=== PATIENT | female | born 1960 | race African-American/Black ===

== ENCOUNTER 2018-09-25 06:33 | Emergency (ER) | payer BC, OTHER ==
[2018-09-25 06:54] VITALS: BP 115/80; PULSE 72; TEMP 97.6; BMI 27.4
--- NOTE | 2018-09-25 07:13 | PDOC ---
History of Present Illness - General Chief Complaint: Injury Stated Complaint: FALL,RT ARM PAIN Time Seen by Provider: 09/25/18 07:13 History Source: Patient Exam Limitations: No Limitations - History of Present Illness Initial Comments: 09/25/18 07:24 57 year old female with no PMH presented to ED for right shoulder pain s/p fall. Pt stated she was shoveling snow and then tripped and fell onto her right shoulder at 1730 yesterday. She denied head injury, LOC, vomiting. She stated she started to get hives to her left hip and right hand last night as well. Pt took 2 Aleve this morning without relief of pain. Allergies: NKDA Past History - Past Medical History Allergies/Adverse Reactions: Allergies Allergy/AdvReac Type Severity Reaction Status Date / Time No Known Drug Allergies Allergy Verified 09/25/18 06:47 Home Medications: Ambulatory Orders Acyclovir [Zovirax -] PO DAILY 06/05/13 Cyanocobalamin [Vitamin B12 -] PO DAILY 06/05/13 Naproxen Sodium [Anaprox Ds] 550 mg PO BID #0 tablet 06/12/13 Anemia: No Asthma: No Cancer: No Cardiac Disorders: No CVA: No COPD: No CHF: No Dementia: No Diabetes: No GI Disorders: No Disorders: No HTN: No Hypercholesterolemia: No Liver Disease: No Seizures: No Thyroid Disease: No - Surgical History Abdominal Surgery: No Appendectomy: No Cardiac Surgery: No Cholecystectomy: No Lung Surgery: No Neurologic Surgery: No Orthopedic Surgery: No - Immunization History Immunization Up to Date: Yes - Suicide/Smoking/Psychosocial Hx Smoking History: Never smoked Have you smoked in the past 12 months: No Information on smoking cessation initiated: No Hx Alcohol Use: No Drug/Substance Use Hx: No Substance Use Type: Alcohol Hx Substance Use Treatment: No Review of Systems - Review of Systems Able to Perform ROS?: Yes Comments:: 09/25/18 07:28 General: denied fever, chills, night sweats, generalized weakness. HEENT: denied sore throat, rhinorrhea, ear pain. Heart: denied chest pain, palpitations, syncope, diaphoresis. Respiratory: denied shortness of breath, cough, sputum production, hemoptysis. Abdomen: denied abdominal pain, nausea, vomiting, diarrhea, constipation, blood in stool. : denied dysuria, increased urinary frequency, hematuria, urinary incontinence , flank pain. Back: denied back pain. Musculoskeletal: admitted to right shoulder pain. Neurological: denied headache, dizziness, numbness, tingling, weakness. Skin: admitted to hives. denied laceration, abrasion. *Physical Exam - Vital Signs Last Vital Signs Temp Pulse Resp BP Pulse Ox 97.6 F 72 18 115/80 99 09/25/18 06:47 09/25/18 06:47 09/25/18 06:47 09/25/18 06:47 09/25/18 06:47 - Physical Exam Comments: 09/25/18 07:29 Constitutional: Well-nourished, Well-developed, appearing stated age. HEENT: head is normocephalic, atraumatic. EOMI. PERRLA. Neck: supple. Full ROM. Heart: regular rhythm. no murmurs, rubs or gallops. Lungs: no stridor. clear to auscultation bilaterally. no crackles, rhonchi or wheezing. no stridor. Abdomen: soft, nontender. normal bowel sounds. no rebound, guarding, masses. Extremities: unable to abduct right shoulder passively or actively secondary to pain. full ROM right elbow and right wrist. no scaphoid tenderess to right hand. full ROM all right hand fingers. Peripheral pulses intact and equal. No lower extremity edema. Neurological: CN 2-12 grossly intact. Moves all four extremities. Psych: awake, alert, oriented x3. Follows commands. Answers questions appropriately. Skin: right hand is swollen and red, consistent with allergic reaction. Moderate Sedation - Procedure Monitoring Vital Signs: Procedure Monitoring Vital Signs Temperature 97.6 F 09/25/18 06:47 Pulse Rate 72 09/25/18 06:47 Respiratory Rate 18 09/25/18 06:47 Blood Pressure 115/80 09/25/18 06:47 O2 Sat by Pulse Oximetry (%) 99 09/25/18 06:47 Medical Decision Making - Medical Decision Making 09/25/18 07:30 57 year old female with no PMH slipped and fell shoveling snow yesterday, presented to ED today c/o right shoulder pain and hives to right hand and left hip. Initial Vital Signs Temp Pulse Resp BP Pulse Ox 97.6 F 72 18 115/80 99 09/25/18 06:47 09/25/18 06:47 09/25/18 06:47 09/25/18 06:47 09/25/18 06:47 Afebrile. No tachycardia. No tachypnea. Normal BP. No hypoxia on room air. o Labs ordered: none c Imaging ordered: right shoulder XR g Medications ordered: tylenol 975 mg PO, Benadryl 25 mg PO 09/25/18 08:08 Pt reported no improvement of pain with Tylenol. Pt reported mild improvement of rash with Benadryl, will continue to monitor. g Medications ordered: 400 mg Ibuprofen PO 09/25/18 08:36 Pt reported she was feeling better. Pt walked out before receiving discharge paperwork, but did receive the copy of the XR report. *DC/Admit/Observation/Transfer Diagnosis at time of Disposition: Shoulder pain, History of fall - Discharge Dispostion Condition at time of disposition: Stable Decision to Admit order: No - Referrals Referrals: Kendy Schwab MD [Primary Care Provider] - Juwan Brandon DO [Staff Physician] - Otis Chin DO [Staff Physician] - Dorian Calderon MD [Staff Physician] - Sumeet Lynne MD [Staff Physician] - Andrew Ross MD [Staff Physician] - - Patient Instructions Printed Discharge Instructions: How to Perform Active Range of Motion Exercises , How to Prevent Falls, DI for Shoulder Pain Additional Instructions: You were seen today for shoulder pain after a fall. Your X-ray showed no fracture or dislocation. I have provided you with a copy of the report. Take this to your primary care doctor. Use the sling for comfort, but make sure to do range of motion exercises of the shoulder, other alex you risk developing a frozen shoulder. Take Tylenol and/or Ibuprofen over the counter for pain. Take as advised on labels. Tylenol and Ibuprofen is not the same medicine and they can be taken together. Do not perform any heavy lifting with the affected shoulder until you are evaluated by your primary care doctor. Follow up with your primary care doctor in 1-2 days. If you are still experiencing shoulder pain after 7-10 days, follow up with an orthopedic doctor. I have provided you with referrals should you need it. Return to the Emergency Department for increasing pain, inability to move arm, numbness/tingling of the arms or fingers, chest pain, shortness of breath, lightheadedness like you may pass out or any other new, worsening or concerning symptoms. - Post Discharge Activity Forms/Work/School Notes: Back to Work
[2018-09-25] MEDS ORDERED: diphenhydrAMINE HCL 25 MG CAPSULE (FP) PO ONE ×2 (07:19→07:36)
[2018-09-25] MEDS ORDERED: ACETAMINOPHEN 325 MG TABLET (FP) PO ONE (07:19)
--- NOTE | 2018-09-25 07:22 | PDOC ---
Attending Attestation - Resident Resident Name: Marika Frank - ED Attending Attestation I have performed the following: I have examined & evaluated the patient, The case was reviewed & discussed with the resident, I agree w/resident's findings & plan - HPI HPI: 09/25/18 08:18 57-year-old female with no significant medical history presenting with right shoulder pain after slip and fall last night ice. Range of motion limited secondary to the pain. Denies weakness, numbness or tingling. Denies head trauma and injuries to rest of her body. took aleve earlier today for pain, with minimal relief. - Physicial Exam PE: 09/25/18 08:20 General: NAD, well appearing Vascular: 2+ DP pulses symmetric and equal. Back: no midline tenderness, no stepoffs, FROM Focused MSK/Neuro Exam: rt shoulder abduction/adduction/flexion/extension limited 2/2 pain, but able to abduct with passive motion at the rt shoulder and prox strength 5/5 actively against resistance. 5/5 shoulder shrug strength. deltoid sensation intact; sensation grossly intact in median/radial/ulnar distribution. distal director of cardiology strength 5/5. 2+ radialis pulses bilaterally and symmetric. no scaphoid or hand /forearm tenderness +soft compartments Skin: color normal color, warm and well perfused. +urticaria to right dorsal hand - Medical Decision Making 09/25/18 08:19 VS wnl. hpi as documented DDx extremity pain: Sprain, contusion, extremity fracture, hematoma. Low suspicion for compartment syndrome, NVI and no neuro deficits. low suspicion for vascular abnormality or infection. allergic rxn to right hand, after eating pizza, improves with benadryl given benadryl use, avoid triggers motrin/tylenol for analgesia. shoulder sling given primarily for comfort. Xray rt shoulder- normal joint space alignment, no acute fx or dislocation. no prox humerus fx, no clavicular tenderness. cystic structures noted in prox humerus Discussed results with patient. shoulder sling. highly encouraged ROM exercises to prevent frozen shoulder. Rest ice and elevation. Pain control with OTC meds including motrin/tylenol as needed every 6 hours; no narcotics needed. Please return to ED for increased pain, weakness, numbness/tingling, fever, or redness. Orthopedic followup given 09/25/18 08:21 09/25/18 08:22 09/25/18 08:22
[2018-09-25] MEDS ORDERED: ACETAMINOPHEN 325 MG TABLET (FP) ONE (07:35)
[2018-09-25] MEDS ORDERED: IBUPROFEN 400 MG TABLET (FP) PO ONE (08:08)
[2018-09-25] MEDS ORDERED: IBUPROFEN 600 MG TABLET (FP) PO ONE (08:14)
== END 2018-09-25 08:40 | disposition home or self-care (01) ==
LOC: JER 06:33
DX: S49.81XA Other specified injuries of right shoulder and upper arm, initial encounter (principal); W00.0XXA Fall on same level due to ice and snow, initial encounter; Y93.H1 Activity, digging, shoveling and raking; Y92.480 Sidewalk as the place of occurrence of the external cause; Y99.8 Other external cause status; T78.1XXA Other adverse food reactions, not elsewhere classified, initial encounter; L50.8 Other urticaria
CPT/HCPCS: 73030-TC-RT-FY; 99281-25

== ENCOUNTER 2020-11-03 06:22 | Day surgery (SDC) | payer SELFPAY ==
[2020-10-27 13:24] VITALS: BMI 27.9
[2020-11-03] MEDS ORDERED: LIDOCAINE HCL/PF 2% SDV 5ML VIAL ONE (07:17)
[2020-11-03] MEDS ORDERED: ONDANSETRON 4 MG/2 ML VIAL ONE ×2 (07:17→09:20)
[2020-11-03] MEDS ORDERED: DEXAMETHASONE SOD PHOSPHATE 4 MG/1 ML VIAL ONE (07:17)
[2020-11-03] MEDS ORDERED: ceFAZolin SODIUM 1 GM VIAL ONE (07:17)
[2020-11-03] MEDS ORDERED: EPHEDRINE SULFATE/0.9% NACL/PF 50 MG/10 ML SYRINGE NR ONE (07:18)
[2020-11-03] MEDS ORDERED: PROPOFOL 20 ML ONE ×2 (07:18)
[2020-11-03] MEDS ORDERED: fentaNYL CITRATE 250 MCG/5 ML VIAL ONE (07:18)
[2020-11-03] MEDS ORDERED: ROCURONIUM BROMIDE 50 MG/5 ML SYRINGE ONE (07:18)
[2020-11-03] MEDS ORDERED: SUCCINYLCHOLINE CHLORIDE 200 MG/10 ML SYRINGE ONE (07:18)
[2020-11-03] MEDS ORDERED: MIDAZOLAM HCL 2 MG/2 ML SINGLE DOSE VIAL ONE ×2 (07:19)
[2020-11-03] MEDS ORDERED: LIDOCAINE HCL 1%, 10 MG/ML (20ML VIAL) ONE (07:25)
[2020-11-03] MEDS ORDERED: LIDOCAINE 1%/EPI 1:100000 (20 ML MULTI DOSE VIAL) ONE (07:25)
[2020-11-03] MEDS ORDERED: EPINEPHrine/PF 1 MG/1 ML (1:1,000) AMPULE ONE (07:25)
[2020-11-03] MEDS ORDERED: BUPIVACAINE HCL/PF 2.5 MG/ML - 30 ML VIAL IJ ONE (07:41)
[2020-11-03] MEDS ORDERED: ACETAMINOPHEN INJECTION 100 ML IVPB ONE (07:41)
[2020-11-03] MEDS ORDERED: BUPIVACAINE LIPOSOME/PF (EXPAREL) 266 MG/20 ML VIAL ONE (07:41)
[2020-11-03] MEDS ORDERED: LIDOCAINE 1%/EPI 1:100000 (20 ML MULTI DOSE VIAL) INF ONE (08:40)
[2020-11-03] MEDS ORDERED: NEOSTIGMINE METHYLSULFATE 0.5 MG/1 ML - 10 ML MDV ONE (09:17)
[2020-11-03] MEDS ORDERED: GLYCOPYRROLATE 0.2 MG/1 ML VIAL ONE (09:19)
[2020-11-03] MEDS ORDERED: ONDANSETRON 4 MG/2 ML VIAL IVPUSH PRN (10:31)
[2020-11-03] MEDS ORDERED: oxyCODONE HCL 5 MG TABLET PO PRN ×2 (10:31)
[2020-11-03] MEDS ORDERED: HYDROmorphone HCL CARPU-JECT 2 MG/1 ML DISP.SYRIN IVPUSH PRN (10:32)
[2020-11-03] MEDS ORDERED: HYDROmorphone HCl 2 MG/ML VIAL ONE (10:38)
[2020-11-03] MEDS: HYDROmorphone HCL CARPU-JECT 2 MG/1 ML DISP.SYRIN IVPUSH PRN ×3 (10:40→11:10)
[2020-11-03] MEDS ORDERED: LACTATED RINGERS SOLUTION 1,000 ML IV SCH (10:45)
[2020-11-03 12:41] VITALS: TEMP 98.1
[2020-11-03 13:48] VITALS: BP 102/58; PULSE 74
== END 2020-11-03 14:15 | disposition home or self-care (01) ==
LOC: FASU 06:22
PROVIDERS: ATTEND Plastic Surgery
PROC: 0J080ZZ Alteration of Abdomen Subcutaneous Tissue and Fascia, Open Approach (ICD-10-PCS; principal; 2020-11-03 08:32)
DX: Z41.1 Encounter for cosmetic surgery (principal)
CPT/HCPCS: 94760; J0131